=== PATIENT | male | born 1975 | race Two or more races ===

== ENCOUNTER 2019-12-14 20:56 | Emergency (ER) | payer MEDICAID ==
[~2019-12-14] VITALS: Ht 177.8 cm; Wt 78.0 kg
[2019-12-15 01:41] LABS: BASOPHILS % 0.6 % (0.0-2.0); EOSINOPHILS % 0.2 % (0.0-5.0); HEMOGLOBIN. 15.1 g/dL (14.0-18.0); LYMPHOCYTES % 25.2 % (20.0-50.0); MEAN CORPUSCULAR HEMOGLOBIN 29.6 pg (28.0-32.0); MEAN CORPUSCULAR VOLUME 86.1 fL (80.0-94.0); MEAN PLATELET VOLUME 8.5 fl (7.4-10.4); MONOCYTES % 5.6 % (2.0-8.0); NEUTROPHILS % 68.4 % (40.0-76.0); PLATELET 257 x1000/uL (130-400); RED BLOOD CELL COUNT 5.11 mill/uL (4.7-6.1); RED CELL DISTRIBUTION WIDTH 12.7 % (11.6-14.6)
[2019-12-15 01:43] LABS: CHLORIDE 107 mEq/L (98-107)
[2019-12-15 03:21] VITALS: BP 151/90
== END 2019-12-15 03:22 | disposition home or self-care (01) ==
LOC: ER 20:56
DX: I10 Essential (primary) hypertension (principal); R07.89 Other chest pain
CPT/HCPCS: 36415; 71045; 80053; 83880; 84484; 85025; 93005; 99285